=== PATIENT | female | born 1965 | race Caucasian/White ===

== ENCOUNTER → 2018-03-09 | Outpatient (CLI) | payer OTHER ==
--- NOTE | 2018-03-09 16:35 | KCIC ---
MR of the right ankle Indication: Right ankle pain, lateral injury in January. Swelling. Comparison: None Technique: Standard multiplanar sequences are obtained. FINDINGS: Artifact: No significant image degradation. Lateral: Peroneal tendons: Moderate thickening of the peroneus longus tendon with partial interstitial tearing, greatest just distal to the lateral malleolus and along the calcaneus and cuboid. There is high-grade tearing at the level of the calcaneocuboid joint where the tendon is poorly visualized, possibly a complete rupture. This is over a distance of about 1 cm. Mild surrounding fluid. Peroneus brevis tendon intact. Lateral collateral ligaments: * Anterior talofibular ligament: Mild thickening but no disruption or contour abnormality. * Calcaneofibular ligament: Mild thickening, no disruption * Posterior talofibular ligament: Mild thickening, no disruption Tibiofibular syndesmosis: Anterior inferior tibiofibular ligament is intact. Tibiofibular syndesmosis is intact. Medial: Posterior tibial tendon: Intact Flexor digitorum longus and hallucis tendons: Intact Medial ligaments: No evidence of acute deltoid ligament tear Anterior: Anterior tibial tendon: Intact Extensor hallucis longus tendon: Intact Extensor digitorum longus tendon: Intact Posterior: Achilles tendon: Intact Plantar aponeurosis: Mild thickening and intermediate signal at the calcaneal attachment compatible with plantar fasciitis. No acute tear. Subtalar joints: Patent Tarsal sinus: Intact Talar Dome: Intact Bones: No significant lesion or acute fracture Fluid: Small tibiotalar and subtalar joint effusions Joints: Mild degenerative changes with marginal spurring slightly greater at the dorsal talonavicular joint Soft tissues: Diffuse subcutaneous edema Impression: 1. Peroneus longus tenosynovitis. There is diffuse interstitial tearing, with high-grade tear or rupture at the level of the calcaneocuboid joint. 2. Mild plantar fasciitis. Electronically signed by: Ugo Cintron MD (03/09/2018 4:32 PM) [facility]
== END | disposition home or self-care (01) ==
LOC: KCIC MRI 15:27
PROVIDERS: ATTEND Orthopaedic Surgery
DX: S96.811A Strain of other specified muscles and tendons at ankle and foot level, right foot, initial encounter (principal); M65.871 Other synovitis and tenosynovitis, right ankle and foot; M72.2 Plantar fascial fibromatosis; X58.XXXA Exposure to other specified factors, initial encounter; Y93.89 Activity, other specified; Y92.89 Other specified places as the place of occurrence of the external cause; Y99.8 Other external cause status
CPT/HCPCS: 73721